=== PATIENT | female | born 1985 | race Caucasian/White ===

== ENCOUNTER 2016-05-18 18:44 | Emergency (ER) | payer OTHER ==
[2016-05-18 18:49] VITALS: BP 119/75; PULSE 82; RESP 17; TEMP 99.1
[2016-05-18] MEDS ORDERED: AMOXICILLIN 500 MG CAP PO STA (19:12)
--- NOTE | 2016-05-18 19:15 | ED ---
ENT HPI - General Chief complaint: ENT Stated complaint: Sore throat Time Seen by Provider: 05/18/16 19:07 Source: patient, RN notes reviewed Mode of arrival: ambulatory Limitations: no limitations - History of Present Illness Initial comments: Is a 30-year-old female chief complaint of sore throat for approximately 2 days. She works as a personal financial counselor in the hospital and has a history of close sick contacts. She denies cough, sinus perssure, runny nose, headache, fever, or chills. - Related Data Previous Rx's Medication Instructions Recorded Amoxicillin 500 mg PO BID #20 capsule 05/18/16 Allergies Allergy/AdvReac Type Severity Reaction Status Date / Time No Known Allergies Allergy Verified 05/18/16 18:47 Review of Systems ROS Statement: Those systems with pertinent positive or pertinent negative responses have been documented in the HPI. ROS Other: All systems not noted in ROS Statement are negative. Past Medical History Past Medical History: No Reported History History of Any Multi-Drug Resistant Organisms: None Reported Past Surgical History: No Surgical Hx Reported Past Psychological History: No Psychological Hx Reported Smoking Status: Never smoker Past Alcohol Use History: None Reported Past Drug Use History: None Reported General Exam - General Exam Comments Initial Comments: Patient is a well appearing 30 year old female. NO acutes dsitress. Limitations: no limitations General appearance: alert, in no apparent distress Head exam: Present: atraumatic, normocephalic, normal inspection Eye exam: Present: normal appearance, PERRL, EOMI. Absent: scleral icterus, conjunctival injection, periorbital swelling ENT exam: Present: normal exam, normal oropharynx (erythema and exudates on tonsil), mucous membranes moist, TM's normal bilaterally Neck exam: Present: normal inspection. Absent: tenderness, meningismus, lymphadenopathy Respiratory exam: Present: normal lung sounds bilaterally. Absent: respiratory distress, wheezes, rales, rhonchi, stridor Cardiovascular Exam: Present: regular rate, normal rhythm, normal heart sounds. Absent: systolic murmur, diastolic murmur, rubs, gallop, clicks Extremities exam: Present: normal inspection, full ROM, normal capillary refill. Absent: tenderness, pedal edema, joint swelling, calf tenderness Neurological exam: Present: alert, oriented X3, CN II-XII intact Psychiatric exam: Present: normal affect, normal mood Skin exam: Present: warm, dry, intact, normal color. Absent: rash Course Vital Signs 05/18/16 18:47 Temperature 99.1 F Pulse Rate 82 Respiratory 17 Rate Blood Pressure 119/75 O2 Sat by Pulse 98 Oximetry Medical Decision Making - Medical Decision Making Patient is a 30 year old female with two days of sore throat. She denies other associated symptoms. [place] strep is positive. Patient given inital dose of amoxicillin in EC, and tylenol. Patient given one day off of work note. Patient advised to follow up with PCP if symptoms continue to persist. Return paramteres discussed. Patient understands treatment plan and will comply. - Lab Data Lab Results 05/18/16 Range/Units 18:52 Group A Strep Rapid Positive A (Negative) Disposition Clinical Impression: Strep pharyngitis Disposition: HOME SELF-CARE Condition: Good Instructions: Strep Throat (ED) Additional Instructions: Patient instructed to rest, increase fluids and complete antibiotic prescription. Follow-up with primary care provider within the next week. Return to the EC if any alarming signs or symptoms occur. Prescriptions: Amoxicillin 500 mg PO BID #20 capsule Referrals: Malvin Rodriguez MD [REFERRING] - 1-2 days Time of Disposition: 19:14
[2016-05-18] MEDS ORDERED: ACETAMINOPHEN TAB 325 MG TAB PO STA (19:47)
== END 2016-05-18 19:50 | disposition home or self-care (01) ==
LOC: EC 18:44
DX: J02.0 Streptococcal pharyngitis (principal)
CPT/HCPCS: 87430; 99283

== ENCOUNTER → 2018-05-29 | Outpatient (CLI) | payer BC ==
[2018-05-29 09:48] LABS: Basophils % (A) 0 %; Eosinophils # (A) 0.2 k/uL (0-0.7); Eosinophils % (A) 2 %; HCT 38.4 % (34.0-46.0); HGB 12.7 gm/dL (11.4-16.0); Lymphocytes # (A) 2.1 k/uL (1.0-4.8); Lymphocytes % (A) 25 %; MCH 28.8 pg (25.0-35.0); MCV 87.2 fL (80.0-100.0); Mean Platelet Volume 6.3; Monocytes # (A) 0.5 k/uL (0-1.0); Monocytes % (A) 6 %; Neutrophils # (A) 5.3 k/uL (1.3-7.7); Neutrophils % (A) 65 %; Platelet Count 297 k/uL (150-450); RDW 13.3 % (11.5-15.5); WBC 8.2 k/uL (3.8-10.6)
== END | disposition home or self-care (01) ==
LOC: LABPAT 08:32
PROVIDERS: ATTEND Obstetrics & Gynecology
DX: Z01.812 Encounter for preprocedural laboratory examination (principal)
CPT/HCPCS: 36415; 85025

== ENCOUNTER 2018-05-30 05:52 | Day surgery (SDC) | payer BC ==
[2018-05-26 14:43] VITALS: BMI 26.5
--- NOTE | 2018-05-29 07:50 | P.HPOB ---
History of Present Illness H&P Date: 05/29/18 Chief Complaint: Missed This patient is a pleasant 32 yr female estimated gestational age 9 wks ( by LMP) 6 weeks by gestational sac, who presents for suction D&C due to a missed . History is such that she presented for care on 05/19. Ultrasound at that time showed a 6 week intrauterine sac with yolk sac but no pole and 4 cm subchorionic bleed. Subsequent f/u ultrasound showed the same findings. BHCG was >44,000. Patient is now requesting D&C for treatment. Review of Systems Genitourinary: Reports Menstruation: Reports amenorrhea Past Medical History Past Medical History: No Reported History History of Any Multi-Drug Resistant Organisms: None Reported Past Surgical History: No Surgical Hx Reported Past Anesthesia/Blood Transfusion Reactions: No Reported Reaction Additional Past Anesthesia/Blood Transfusion Reaction / Comment(s): no previous anesthesia Past Psychological History: No Psychological Hx Reported Smoking Status: Never smoker Past Alcohol Use History: None Reported Past Drug Use History: None Reported - Past Family History Mother Family Medical History: No Reported History Medications and Allergies Home Medications Medication Instructions Recorded Confirmed Type No Known Home Medications 05/26/18 05/26/18 History Allergies Allergy/AdvReac Type Severity Reaction Status Date / Time No Known Allergies Allergy Verified 05/26/18 14:33 Exam - OBG Physical Exam Abdomen: bowel sounds normal, no diffuse tenderness, no bruit present, no guarding noted, no hepatomegaly, no splenomegaly, no mass Vulva: both: normal Vagina: normal moisture, no discharge Cervix: no lesion, no discharge Uterus: enlarged (6 weeks size), normal contour Results Ultrasounds as above. Blood type is A negative. Assessment and Plan Assessment: This is a pleasant 32 yr. old female with 6 week missed . Patient is requesting a suction D&C for treatment. Plan is suction D&C and Rhogam administration. I have discussed this surgery with Ariella in detail, including the risks: infection, bleeding, possible uterine perforation. All of the patients questions were answered and a written consent obtained. (1) Missed Status: Acute Code(s): O02.1 - MISSED SNOMED Code(s): 20945322 (2) Rh negative status during Status: Chronic Code(s): O26.899 - OTH RELATED CONDITIONS, UNSPECIFIED TRIMESTER; Z67.91 - UNSPECIFIED BLOOD TYPE, RH NEGATIVE SNOMED Code(s): 780452345
[~2018-05-30 05:52] MED LIST: Pre Op ABX Message 1 EACH MISC MISCELLANE ONE
[2018-05-30] MEDS ORDERED: ONDANSETRON 4 MG/2 ML VIAL IVP ONE (06:05)
[2018-05-30] MEDS ORDERED: LIDOCAINE 1% 20 ML VIAL (10MG/ML) FOR IV START INTRADERMA PRN (06:05)
[2018-05-30] MEDS ORDERED: DEXAMETHASONE SOD PHOSPHATE 10 MG/ML 1 ML VIAL IV ONE (06:05)
[2018-05-30] MEDS ORDERED: MIDAZOLAM (PF) 2 MG/2 ML VIAL IV PRN (06:05)
[2018-05-30] MEDS ORDERED: fentaNYL (PF) 50 MCG/ML 2 ML AMP IV PRN (06:05)
[2018-05-30] MEDS ORDERED: HYDROmorphone 0.5 MG/0.5 ML SYRINGE IVP PRN (06:05)
[2018-05-30] MEDS ORDERED: LACTATED RINGERS 1,000 ML IV SCH (06:05)
[2018-05-30] MEDS ORDERED: LIDOCAINE 1% INJ 10MG/ML (20 ML MDV) ONE (06:59)
[2018-05-30] MEDS ORDERED: MIDAZOLAM 2 MG/2 ML VIAL ONE (06:59)
[2018-05-30] MEDS ORDERED: fentaNYL (PF) 50 MCG/ML 2 ML AMP ONE (06:59)
[2018-05-30] MEDS ORDERED: PROPOFOL 10 MG/ML 20 ML VIAL IV ONE (06:59)
[2018-05-30] MEDS ORDERED: KETOROLAC 30 MG/ML 1 ML VIAL ONE (06:59)
--- NOTE | 2018-05-30 07:34 | P.OP ---
Date of Procedure: 05/30/18 Preoperative Diagnosis: Missed 6 weeks Postoperative Diagnosis: Same Procedure(s) Performed: Suction D&C Anesthesia: MAC Surgeon: Seven Mosqueda Estimated Blood Loss (ml): 100 Pathology: other (Uterine contents) Condition: stable Disposition: PACU Indications for Procedure: Please see dictated H&P for intimate details of this patient's admission. Brief summary is a pleasant 32-year-old multigravida patient who is 6 weeks estimated gestation with known missed and subchorionic bleed. Patient' s had serial ultrasounds showing no viable and persistent tissue. Patient is requesting suction D&C for treatment at this time. Patient I have discussed the surgery and risks including risks of infection, bleeding, possible uterine perforation. All the patient's questions are answered and a written consent is obtained. Operative Findings: This patient had a copious amount of uterine contents consistent with degenerated products of conception Description of Procedure: This patient is taken to the operating room where she is laid in the supine position. She subsequently undergoes general mask anesthesia without incident. With an adequate level of anesthesia was placed in the dorsal lithotomy position. She has a vaginal perineal prep and drape. Examination under anesthesia shows a mid position uterus. Bladder is drained for 5 mL of clear urine. Weighted speculums then placed in the posterior vagina. The anterior lip of the cervix and grasped with an Allis clamp. Serial dilation is then done gently to allow a 8 curved suction curette easily and the uterine cavity. Suction is applied and a large amount of tissue is removed. All tubal passes are made until no further tissue was noted. A gentle 4 quadrant curettage is then done again no further tissue was noted. A final pass of the suction curet is done and again no further tissue was noted. There is minimal bleeding at this time. Procedure is then ended. Allis clamp and weighted speculum were removed. All counts are correct 3. Patient is awakened from anesthesia and taken recovery room in satisfactory condition where she will be given RhoGAM. There are no complications.
[2018-05-30 07:41] VITALS: TEMP 98.1
[2018-05-30] MEDS: Rhogam IMMUNE GLOBULIN 1,500 UNIT/1 ML IM ONE ×2 (08:16→08:19)
[2018-05-30] MEDS ORDERED: LACTATED RINGERS 1,000 ML IV ONE (08:32)
[2018-05-30 09:03] VITALS: RESP 16
[2018-05-30 09:40] VITALS: BP 107/69; PULSE 80
== END 2018-05-30 10:07 | disposition home or self-care (01) ==
LOC: OR 05:52
PROVIDERS: ATTEND Obstetrics & Gynecology
DX: O02.1 Missed abortion (principal); O26.891 Other specified pregnancy related conditions, first trimester; Z67.11 Type A blood, Rh negative
CPT/HCPCS: 86900; 86901; 88305; 86850; 59820; J2791; J2250 ×2; J1100; J2405; J2001; J3010; J1885; J2704

== ENCOUNTER → 2019-03-28 | Outpatient (CLI) | payer BC ==
[2019-03-28 11:07] LABS: HCT 31.4 % (34.0-46.0); HGB 10.7 gm/dL (11.4-16.0); MCH 30.4 pg (25.0-35.0); MCHC 34.2 g/dL (31.0-37.0); MCV 88.9 fL (80.0-100.0); Mean Platelet Volume 7.1; Platelet Count 282 k/uL (150-450); RBC 3.54 m/uL (3.80-5.40); RDW 13.3 % (11.5-15.5); WBC 11.6 k/uL (3.8-10.6)
== END | disposition home or self-care (01) ==
LOC: LABWHC1 09:26
PROVIDERS: ATTEND Obstetrics & Gynecology
DX: Z34.82 Encounter for supervision of other normal pregnancy, second trimester (principal); Z3A.00 Weeks of gestation of pregnancy not specified
CPT/HCPCS: 36415; 82950; 85027; 86850

== ENCOUNTER → 2019-04-02 | Outpatient (CLI) | payer BC ==
[2019-04-02 12:41] LABS: Glucose 3 Hour, Gest 100 mg/dL
== END | disposition home or self-care (01) ==
LOC: LABWHC1 08:23
PROVIDERS: ATTEND Obstetrics & Gynecology
DX: O99.810 Abnormal glucose complicating pregnancy (principal); Z3A.00 Weeks of gestation of pregnancy not specified
CPT/HCPCS: 36415; 82951; 82952

== ENCOUNTER 2019-06-28 06:00 | Inpatient (IN) | payer BC, OTHER ==
--- NOTE | 2019-06-27 10:48 | P.HPOB ---
History of Present Illness H&P Date: 06/27/19 Chief Complaint: Requested induction of labor This patient is a pleasant 33 yr old female EDC 07/04/2019 estimated gestational age 39wk and 1/7 who presents for induction secondary to mild polyhydraminos. Patient had a 36 weeks ultrasound that demonstrated the OSCAR to be 26cm. She has been monitored with NSTs and now presents for requested induction of labor. has been uncomplicated and polyhydramios appears to be idiopathic. Review of Systems Genitourinary: Reports Menstruation: Reports amenorrhea Past Medical History Past Medical History: No Reported History Additional Past Medical History / Comment(s): 2 previous deliveries (boy, girl) History of Any Multi-Drug Resistant Organisms: None Reported Additional Past Surgical History / Comment(s): Dilation and curretage for missed Past Anesthesia/Blood Transfusion Reactions: No Reported Reaction Past Psychological History: No Psychological Hx Reported Smoking Status: Never smoker Past Alcohol Use History: None Reported Past Drug Use History: None Reported Medications and Allergies Home Medications Medication Instructions Recorded Confirmed Type Ibuprofen [Motrin] 600 mg PO Q6HR PRN #40 tab 05/30/18 Rx Allergies Allergy/AdvReac Type Severity Reaction Status Date / Time No Known Allergies Allergy Verified 05/30/18 06:13 Exam - OBG Physical Exam Abdomen: bowel sounds normal Vulva: both: normal Vagina: normal moisture, no discharge Cervix: no lesion (Cervix in the office is 2cm/soft.), no discharge Uterus: enlarged (Fundal height is 38 cm. ) Results labs: A negative, received Rhogam on 04/16/2020, Rubella Immune, RPR- HepB nonreactive, Toxo negative. GBS negative. Glucola was abnormal but 3hr GTT was normal. Assessment and Plan Assessment: This is a pleasant 33 yr female estimated gestational age 39 and 1/7 weeks who presents for delivery secondary to mild polyhydraminos. Plan is induction of labor and anticipate normal vagina delivery. (1) 39 weeks gestation of Status: Acute Code(s): Z3A.39 - 39 WEEKS GESTATION OF SNOMED Code(s): 06925767 (2) Rh negative status during Status: Chronic Code(s): O26.899 - OTH RELATED CONDITIONS, UNSPECIFIED TRIMESTER; Z67.91 - UNSPECIFIED BLOOD TYPE, RH NEGATIVE SNOMED Code(s): 876378186 (3) Polyhydramnios affecting in third trimester Status: Acute Code(s): O40.3XX0 - POLYHYDRAMNIOS, THIRD TRIMESTER, NOT APPLICABLE OR UNSP SNOMED Code(s): 385977560
[2019-06-28] MEDS ORDERED: LIDOCAINE 0.5% (PF) 5 MG/ML (50 ML SDV) SQ PRN (06:11)
[2019-06-28] MEDS ORDERED: METHYLERGONOVINE 0.2 MG/ML 1 ML AMP IM PRN (06:11)
[2019-06-28] MEDS ORDERED: OXYTOCIN 30 UNITS/500 ML NS 30 UNIT in SALINE 1 500ML.BAG IV SCH (06:11)
[2019-06-28] MEDS ORDERED: CARBOPROST TROMETHAMINE 250 MCG/ML 1 ML AMP IM PRN (06:11)
[2019-06-28] MEDS ORDERED: TERBUTALINE 1 MG/ML VIAL SQ PRN (06:11)
[2019-06-28] MEDS ORDERED: OXYTOCIN 10 UNIT/ML 1 ML VIAL IM PRN (06:11)
[2019-06-28] MEDS: LACTATED RINGERS 1,000 ML IV SCH ×3 (06:20→11:56)
[2019-06-28 06:46] LABS: Basophils % (A) 0 %; Eosinophils # (A) 0.2 k/uL (0-0.7); Eosinophils % (A) 2 %; HCT 29.8 % (34.0-46.0); HGB 9.7 gm/dL (11.4-16.0); Lymphocytes # (A) 2.1 k/uL (1.0-4.8); Lymphocytes % (A) 22 %; MCH 26.1 pg (25.0-35.0); MCHC 32.5 g/dL (31.0-37.0); MCV 80.3 fL (80.0-100.0); Monocytes # (A) 0.6 k/uL (0-1.0); Monocytes % (A) 6 %; Neutrophils # (A) 6.6 k/uL (1.3-7.7); Neutrophils % (A) 68 %; Platelet Count 278 k/uL (150-450); RBC 3.71 m/uL (3.80-5.40); RDW 14.8 % (11.5-15.5); WBC 9.7 k/uL (3.8-10.6)
[2019-06-28] MEDS ORDERED: ROPIVACAINE 5MG/ML 20ML VIAL ONE (09:54)
[2019-06-28] MEDS ORDERED: SODIUM CHLORIDE 0.9% 100 ML BAG ONE (09:54)
[2019-06-28] MEDS ORDERED: fentaNYL (PF) 50 MCG/ML 5 ML AMP ONE (09:54)
[2019-06-28] MEDS ORDERED: ACETAMINOPHEN TAB 325 MG TAB PO PRN (14:24)
[2019-06-28] MEDS ORDERED: WITCH HAZEL 1 EACH MED..PAD TOPICAL PRN (14:24)
[2019-06-28] MEDS ORDERED: diphenhydrAMINE 50 MG/ML 1 ML VIAL IVP PRN (14:24)
[2019-06-28] MEDS ORDERED: LANOLIN CREAM 5 GM TUBE TOPICAL PRN (14:24)
[2019-06-28] MEDS ORDERED: Rhogam IMMUNE GLOBULIN 1,500 UNIT/1 ML IM ONE (14:24)
[2019-06-28] MEDS ORDERED: BENZOCAINE/MENTHOL SPRAY 1 GM/SPRAY AEROSOL TOPICAL PRN (14:24)
[2019-06-28] MEDS ORDERED: OXYTOCIN 20 UNITS/1000 ML NS 1,000 ML IV SCH (14:24)
[2019-06-28] MEDS ORDERED: SIMETHICONE 80 MG CHEWABLE PO PRN (14:24)
[2019-06-28] MEDS ORDERED: diphenhydrAMINE 25 MG CAP PO PRN (14:24)
[2019-06-28] MEDS ORDERED: ZOLPIDEM 5 MG TAB PO PRN (14:24)
[2019-06-28] MEDS ORDERED: HYDROCORTISONE 2.5% RECTAL CREAM 30 GM TUBE RECTAL PRN (14:24)
[2019-06-28] MEDS: IBUPROFEN 600 MG TAB PO PRN ×2 (14:33→21:15)
[2019-06-28] MEDS: SENNOSIDES-DOCUSATE SODIUM 1 EACH TAB PO SCH ×2 (14:53→21:15)
--- NOTE | 2019-06-28 18:44 | P.PROBDLV ---
Vaginal Delivery Note - . Vaginal Delivery Note: Vaginal delivery viable 2 female 39 and one sevenths weeks gestation who is admitted to labor and delivery for induction secondary to mild polyhydramnios. Patient is admitted she has artificial rupture membranes to [facility] dilated for clear fluid. Labor is induced with Pitocin per protocol. Patient's labor progresses she does get an epidural at approximately 5 cm. Patient's labor continues she gets to complete. Pushes the head to the perineum. Posterior perineum is supported we have controlled delivery of the infant's head over the intact perineum. Mouth and nares are bulb suctioned. There is a very loose nuchal cord which is reduced. With gentle downward traction we then have deliver the anterior and posterior shoulder and rest this infant's body. The vigorous viable male Apgars are 9 and 9 delivery time is 1405 hrs. After delivery of the infant the umbilical cord is loud to quit pulsating is then doubly clamped and cut. It appears to be trivascular. Cord blood is obtained for Rh status. Placenta is then spontaneously delivered intact. Estimated blood loss is 100 mL. There are no lacerations no repair. No complications. All counts are correct 3.
[2019-06-29 04:24] VITALS: RESP 16; TEMP 98
--- NOTE | 2019-06-29 05:48 | P.PNOBGVD ---
Subjective - Subjective Patient reports: Reports appetite normal, Reports voiding normally, Reports pain well controlled, Reports ambulating normally : doing well Objective - Latest Vital Signs Latest vital signs: Vital Signs Temp Pulse Resp BP Pulse Ox 06/29/19 04:00 98.0 F 69 16 123/56 06/29/19 00:00 98.1 F 62 18 112/69 06/28/19 20:00 98.3 F 90 16 111/69 06/28/19 16:15 98.8 F 112 H 18 103/61 97 06/28/19 15:45 98.6 F 99 18 112/63 06/28/19 15:15 98.2 F 90 18 113/70 06/28/19 15:00 96 108/68 06/28/19 14:45 99.3 F 94 18 108/64 06/28/19 14:30 98.4 F 108 H 18 117/59 06/28/19 14:15 99.2 F 108 H 18 128/65 06/28/19 07:12 96.8 F L 92 18 111/63 97 Intake and Output 06/28/19 06/28/19 06/29/19 14:59 22:59 06:59 Output Total 500 400 Balance -500 -400 Output: Urine 400 400 Estimated Blood Loss 100 Other: # Voids 1 3 Weight 69.853 kg - Exam Lungs: bilateral: normal Chest: Normal S1, Normal S2 Extremities: Present: normal Abdomen: Present: normal appearance, soft Uterus: Present: normal, firm - Labs Labs: Abnormal Lab Results - Last 24 Hours (Table) 06/28/19 Range/Units 06:20 RBC 3.71 L (3.80-5.40) m/uL Hgb 9.7 L (11.4-16.0) gm/dL Hct 29.8 L (34.0-46.0) % Assessment and Plan Assessment: day #1. Patient is resting without complaints and wishes to go home. Vital signs are stable she's afebrile. Uterus is firm nontender she's having normal lochia. Impression normal course. Plan is to continue routine care discharge home later today. (1) 39 weeks gestation of Current Visit: No Status: Acute Code(s): Z3A.39 - 39 WEEKS GESTATION OF SNOMED Code(s): 60090895 (2) Rh negative status during Current Visit: No Status: Chronic Code(s): O26.899 - OTH RELATED CONDITIONS, UNSPECIFIED TRIMESTER; Z67.91 - UNSPECIFIED BLOOD TYPE, RH NEGATIVE SNOMED Code(s): 632167768 (3) Polyhydramnios affecting in third trimester Current Visit: No Status: Acute Code(s): O40.3XX0 - POLYHYDRAMNIOS, THIRD TRIMESTER, NOT APPLICABLE OR UNSP SNOMED Code(s): 024845708
--- NOTE | 2019-06-29 05:52 | P.DS ---
Providers Date of admission: 06/28/19 06:00 Expected date of discharge: 06/29/19 Attending physician: Seven Mosqueda Primary care physician: Stated None - Discharge Diagnosis(es) (1) 39 weeks gestation of Current Visit: No Status: Acute (2) Rh negative status during Current Visit: No Status: Chronic (3) Polyhydramnios affecting in third trimester Current Visit: No Status: Acute Hospital Course: Please see dictated H&P for intimate details of this patient's admission. Brief summary this pleasant 33-year-old 4 para 2 female 39 and one sevenths weeks gestation admitted to labor and delivery for requested induction of labor and secondary to polyhydramnios. Patient is admitted she is uncomplicated induction of labor quickly goes on have a vaginal delivery viable male infant. Please see dictated delivery note. day #1 patient without complaints she wishes to go home. Patient's felt be stable for discharge home follow up with me in 6 weeks. Procedures: Induction of labor normal vaginal delivery Patient Condition at Discharge: Good Plan - Discharge Summary New Discharge Prescriptions: New Ibuprofen [Motrin] 600 mg PO Q6HR PRN #30 tab PRN Reason: Mild Pain Or Fever >= 100.5 Discharge Medication List Ibuprofen [Motrin] 600 mg PO Q6HR PRN #30 tab 06/29/19 [Rx] Follow up Appointment(s)/Referral(s): Seven Mosqueda MD [STAFF PHYSICIAN] - 08/10/19 9:15 am Patient Instructions/Handouts: Vaginal Delivery (DC) Activity/Diet/Wound Care/Special Instructions: No intercourse or anything per vagina for 6 weeks. Please call if any fever, chills, excessive vaginal bleeding, and/or abdominal pain. Discharge Disposition: HOME SELF-CARE
[2019-06-29] MEDS: IBUPROFEN 600 MG TAB PO PRN ×2 (06:37→13:35)
[2019-06-29] MEDS: SENNOSIDES-DOCUSATE SODIUM 1 EACH TAB PO SCH (08:17)
[2019-06-29 09:22] VITALS: BP 102/60; PULSE 90
== END 2019-06-29 15:20 | disposition home or self-care (01) | DRG 807 ==
LOC: 4FBP 06:00
PROVIDERS: ADMIT Obstetrics & Gynecology; ATTEND Obstetrics & Gynecology
PROC: 10907ZC Drainage of Amniotic Fluid, Therapeutic from Products of Conception, Via Natural or Artificial Opening (ICD-10-PCS; principal; 2019-06-28)
PROC: 3E033VJ Introduction of Other Hormone into Peripheral Vein, Percutaneous Approach (ICD-10-PCS; principal; 2019-06-28)
PROC: 10E0XZZ Delivery of Products of Conception, External Approach (ICD-10-PCS; principal; 2019-06-28)
DX: O40.3XX0 Polyhydramnios, third trimester, not applicable or unspecified (principal); Z37.0 Single live birth; O69.81X0 Labor and delivery complicated by cord around neck, without compression, not applicable or unspecified; Z3A.39 39 weeks gestation of pregnancy; Z67.91 Unspecified blood type, Rh negative
CPT/HCPCS: 85025; 86850; 86900; 86901; 88307